=== PATIENT | female | born 1935 | race Caucasian/White ===

== ENCOUNTER → 2016-12-28 | Outpatient (CLI) | payer MEDICARE, OTHER | END | disposition home or self-care (01) | LOC: CVU 09:23 | PROVIDERS: ATTEND Surgery | DX: I65.23 Occlusion and stenosis of bilateral carotid arteries (principal) | CPT/HCPCS: 93880 ==

== ENCOUNTER 2018-09-11 15:28 | Outpatient (CLI) | payer MEDICARE, OTHER | END 2018-09-11 23:59 | disposition home or self-care (01) | LOC: CVU 15:28 | PROVIDERS: ATTEND Surgery | DX: I65.23 Occlusion and stenosis of bilateral carotid arteries (principal); Z86.73 Personal history of transient ischemic attack (TIA), and cerebral infarction without residual deficits; I10 Essential (primary) hypertension | CPT/HCPCS: 93880 ==

== ENCOUNTER 2019-07-23 10:08 | Outpatient (CLI) | payer MEDICARE, OTHER | END 2019-07-23 23:59 | disposition home or self-care (01) | LOC: CFH 10:08 | PROVIDERS: ATTEND Family Medicine | DX: N95.9 Unspecified menopausal and perimenopausal disorder (principal) | CPT/HCPCS: 77080 ==

== ENCOUNTER → 2019-09-26 | Outpatient (CLI) | payer MEDICARE, OTHER | END | disposition home or self-care (01) | LOC: CVU 15:34 | PROVIDERS: ATTEND Surgery | DX: I65.23 Occlusion and stenosis of bilateral carotid arteries (principal) | CPT/HCPCS: 93880 ==